=== PATIENT | female | born 1950 | race African-American/Black ===

== ENCOUNTER → 2023-12-18 | Outpatient (CLI) | payer MEDICARE, MEDICAID ==
[~2023-12-18] MED LIST: IOHEXOL-300 100 ML BOTTLE ONE
== END | disposition home or self-care (01) ==
LOC: MERGE 08:00 → NM 09:44
PROVIDERS: ATTEND Internal Medicine
DX: D35.02 Benign neoplasm of left adrenal gland (principal); E27.9 Disorder of adrenal gland, unspecified; C50.911 Malignant neoplasm of unspecified site of right female breast
CPT/HCPCS: 71270; 78306; 74178; Q9967; A9503

== ENCOUNTER 2024-01-29 13:59 | Inpatient (IN) | payer MEDICARE, MEDICAID ==
[~2024-01-29] VITALS: Ht 157.5 cm; Wt 61.7 kg
[2024-01-29] MEDS: DEXT 5%/0.45% NACL 1000ML 1,000 ML IV SCH (17:00)
[2024-01-29] MEDS ORDERED: ONDANSETRON HCL 4MG/2ML INJ IV PRN (17:00)
[2024-01-29] MEDS ORDERED: DIPHENHYDRAMINE 50MG/ML VIAL IV PRN (17:00)
[2024-01-29] MEDS ORDERED: GUAIFENESIN 200MG/10ML SUGAR FREE UDC PO PRN (17:00)
[2024-01-29] MEDS ORDERED: ACETAMINOPHEN 325MG TABLET PO PRN ×2 (17:00)
[2024-01-29] MEDS ORDERED: MAGNESIUM/ALUMINUM HYDROXIDE/SIMETHICONE 30ML UDC PO PRN (17:00)
[2024-01-29 17:39] LABS: BASOPHILS % 0.6 % (0.0-2.0); EOSINOPHILS % 3.1 % (0.0-5.0); HEMOGLOBIN. 10.1 g/dL (12.0-16.0); MEAN CORPUSCULAR HEMOGLOBIN 27.5 pg (28.0-32.0); MEAN CORPUSCULAR HGB CONC 32.6 g/dL (31.0-37.0); MEAN CORPUSCULAR VOLUME 84.3 fL (81.0-99.0); MEAN PLATELET VOLUME 8.8 fl (7.4-10.4); MONOCYTES % 11.7 % (2.0-8.0); NEUTROPHILS % 58.6 % (40.0-76.0); PLATELET 306 x1000/uL (130-400); RED BLOOD CELL COUNT 3.67 mill/uL (4.2-5.4); RED CELL DISTRIBUTION WIDTH 18.1 % (11.6-14.6)
[2024-01-29 17:45] LABS: CHLORIDE 106 mEq/L (98-107); POTASSIUM 3.7 mEq/L (3.5-5.1); SODIUM 139 mEq/L (136-145)
[2024-01-29 17:46] LABS: CALCIUM 10.4 mg/dL (8.7-10.4); CARBON DIOXIDE 29 mEq/L (21-32)
[2024-01-29 17:50] LABS: PROTHROMBIN TIME 10.7 sec (9.6-11.0)
[2024-01-29 17:51] LABS: CREATININE 0.8 mg/dL (0.6-1.0); GLUCOSE 117 mg/dL (70-105); UREA NITROGEN BLOOD 11 mg/dL (9-23)
[2024-01-29 20:00] VITALS: BP 148/62; PULSE 91; RESP 19; TEMP 36.50292; O2SAT 98
[2024-01-29 22:42] VITALS: BP 148/67; PULSE 91; RESP 19; TEMP 36.5292
[2024-01-30] VITALS: BP 137/65; PULSE 81; RESP 19; TEMP 36.78072; O2SAT 98
[2024-01-30 04:00] VITALS: BP 175/94; PULSE 107; RESP 19; TEMP 36.83628; O2SAT 100
[2024-01-30] MEDS: CLONIDINE 0.1MG TABLET PO PRN (06:05)
[2024-01-30] MEDS ORDERED: BUPIVACAINE HCL/PF 0.5% (5MG/ML) 10ML ONE (07:30)
[2024-01-30] MEDS ORDERED: SKIN ADHESIVE 0.7 GM EA TOP ONE (07:31)
[2024-01-30 08:00] VITALS: BP 145/72; PULSE 100; RESP 18; TEMP 36.28068; O2SAT 100
[2024-01-30] MEDS: LOSARTAN 50 MG TABLET PO SCH (09:00)
[2024-01-30] MEDS ORDERED: ONDANSETRON HCL 4MG/2ML INJ IV PRN (10:15)
[2024-01-30] MEDS ORDERED: FENTANYL CITRATE/PF 50MCG/ML 2ML VIAL IV PRN (11:00)
[2024-01-30 16:00] VITALS: BP 104/68; PULSE 91; RESP 17; TEMP 36.05844; O2SAT 99
[2024-01-30 20:00] VITALS: BP 90/48; PULSE 91; RESP 20; TEMP 35.8362; O2SAT 97
[2024-01-31] VITALS: BP 106/59; PULSE 92; RESP 20; TEMP 36.50292; O2SAT 99
[2024-01-31 04:00] VITALS: BP 90/56; PULSE 98; RESP 20; TEMP 36.3918; O2SAT 97
[2024-01-31 08:00] VITALS: BP 93/49; PULSE 90; RESP 18; TEMP 35.61396; O2SAT 100
[2024-01-31 12:00] VITALS: BP_SYST 88; BP_SYST 95; BP_DIAS 52; BP_DIAS 58; PULSE 99; RESP 18; TEMP 36.00288; O2SAT 100
[2024-01-31 16:00] VITALS: BP 93/58; PULSE 99; RESP 20; TEMP 36.00288; O2SAT 100
[2024-01-31 20:00] VITALS: BP 109/60; PULSE 91; RESP 20; TEMP 36.89184; O2SAT 98
[2024-02-01] VITALS: BP 112/65; PULSE 98; RESP 20; TEMP 36.72516; O2SAT 97
[2024-02-01 08:00] VITALS: BP 119/62; PULSE 85; RESP 17; TEMP 37.11408; O2SAT 100
[2024-02-01 12:00] VITALS: BP 111/61; PULSE 74; RESP 17; TEMP 37.05852; O2SAT 100
[2024-02-01 16:00] VITALS: BP 156/58; PULSE 69; RESP 18; TEMP 36.78072; O2SAT 100
[2024-02-01 20:00] VITALS: BP 129/75; PULSE 105; RESP 18; TEMP 36.33624; O2SAT 100
[2024-02-01] MEDS: ZOLPIDEM TARTRATE 5MG TABLET PO PRN (21:11)
[2024-02-01] MEDS: LORAZEPAM 0.5MG TABLET PO PRN (21:11)
[2024-02-02] VITALS: BP 123/70; PULSE 96; RESP 18; TEMP 36.6696; O2SAT 100
[2024-02-02 04:00] VITALS: BP 125/56; PULSE 95; RESP 18; TEMP 36.72516; O2SAT 100
[2024-02-02 08:00] VITALS: BP 117/67; PULSE 66; RESP 18; TEMP 37.28076; O2SAT 97
[2024-02-02 12:00] VITALS: BP 116/63; PULSE 67; RESP 18; TEMP 36.78072; O2SAT 100
[2024-02-02 16:00] VITALS: BP 116/63; PULSE 99; RESP 18; TEMP 37.16964; O2SAT 100
[2024-02-03] VITALS: BP 117/69; PULSE 89; RESP 18; TEMP 36.44736; O2SAT 98
[2024-02-03 04:00] VITALS: BP 128/74; PULSE 88; RESP 19; TEMP 36.44736; O2SAT 98
[2024-02-03 08:00] VITALS: BP 107/53; PULSE 88; RESP 20; TEMP 35.8362; TEMP 35.83620; O2SAT 98
[2024-02-03 12:00] VITALS: RESP 20
[2024-02-03 16:00] VITALS: RESP 20
[2024-02-03 19:39] VITALS: BP 107/53; PULSE 88; TEMP 96.5; O2SAT 98
== END 2024-02-03 20:45 | DRG 579 ==
LOC: ER 13:59 → 6EST 14:55 → EDBEDREQ 14:58
PROVIDERS: ADMIT Internal Medicine; ATTEND Internal Medicine
PROC: 0HBT0ZZ Excision of Right Breast, Open Approach (ICD-10-PCS; principal; 2024-01-30)
PROC: 07B50ZZ Excision of Right Axillary Lymphatic, Open Approach (ICD-10-PCS; 2024-01-30)
DX: C50.911 Malignant neoplasm of unspecified site of right female breast (principal); L89.153 Pressure ulcer of sacral region, stage 3; I10 Essential (primary) hypertension; D64.9 Anemia, unspecified; R59.1 Generalized enlarged lymph nodes; Z79.899 Other long term (current) drug therapy
CPT/HCPCS: 36415; 71045; 80048; 85025; 86850; 86900; 93005; 99285; C1893; J3490; J7120